=== PATIENT | female | born 1980 | race Caucasian/White ===

== ENCOUNTER 2016-06-08 08:49 | Emergency (ER) | payer MEDICAID ==
[~2016-06-08] VITALS: Ht 154.9 cm; Wt 66.0 kg
[~2016-06-08 08:49] MED LIST: PREN1TAB49
[2016-06-08 08:52] VITALS: Ht 154.9 cm; Wt 66.0 kg
[2016-06-08 09:46] LABS: ADD SCAN DIFF NO
[2016-06-08 09:51] LABS: BASOPHILS % 0.3 % (0.0-2.0); EOSINOPHILS # 0.1 10^3/ul (0.0-0.5); EOSINOPHILS % 1.3 % (0.0-7.0); HEMOGLOBIN 10.9 g/dl (12.0-16.0); LYMPHOCYTES # 1.4 10^3/ul (0.8-2.9); LYMPHOCYTES % 20.9 % (15.0-51.0); MEAN CORPUSCULAR HEMOGLOBIN 30.2 pg (29.0-33.0); MEAN CORPUSCULAR VOLUME 91.4 fl (82.0-101.0); MEAN PLATELET VOLUME 9.2 fl (7.4-10.4); MONOCYTE # 0.5 10^3/ul (0.3-0.9); NEUTROPHIL # 4.7 10^3/ul (1.6-7.5); NEUTROPHILS % 70.1 % (39.0-77.0); PLATELET COUNT 246 10^3/UL (140-415); RED BLOOD COUNT 3.61 10^6/ul (4.20-5.40); RED CELL DISTRIBUTION WIDTH 13.6 % (11.5-14.5); WHITE BLOOD COUNT 6.7 10^3/ul (4.8-10.8)
[2016-06-08 10:04] LABS: ADD UMIC YES; URINE BILIRUBIN (Dip) NEGATIVE (NEGATIVE); URINE BLOOD (Dip) NEGATIVE (NEGATIVE); URINE COLOR LT. YELLOW (YELLOW); URINE GLUCOSE (Dip) NEGATIVE (NEGATIVE); URINE KETONES (Dip) NEGATIVE (NEGATIVE); URINE LEUKOCYTE ESTERASE (Dip) 1+ (NEGATIVE); URINE NITRITE (Dip) NEGATIVE (NEGATIVE); URINE TOTAL PROTEIN (Dip) NEGATIVE (NEGATIVE); URINE UROBILINOGEN (Dip) 0.2 E.U./dL (0.1-1.0)
--- NOTE | 2016-06-08 10:10 | RADRPT ---
PROCEDURE: US OB. CLINICAL INDICATION: Trauma due to a fall. . Pelvic pain. TECHNIQUE: Multiple sonographic images of the uterus were obtained. The images were revi ewed on a PACS workstation. COMPARISON: No prior studies are available for comparison. FINDINGS: There is a single live intrauterine gestation. heart rate is 144 beats per minute. Measurements were made in order to determine age. The results are as follows: BPD = 4.33 cm. HC = 15.52 cm. AC = 13.87 cm. FL = 2.69 cm. Estimated weight is 256 +/- 38 grams. LMP growth percentile is 25 %. Menstrual age by ultrasound dates is 18 weeks 5 days. The estimated date of delivery is 11/04/2016. Cervical length is 3.2 cm. Maximum vertical pocket o f amniotic fluid is 6.4 cm. The ovaries are not visualized. Position is variable and placenta is anterior grade 0. There is no evidence for an abruption. There is at least a partial placenta previa. IMPRESSION: 1. Single live intrauterine gestation of 18 weeks 5 days menstrual age by ultrasound dates. 2. The estimated date of delivery is 11/04/2016. 3. Anterior placenta with at least partial previa. Follow-up advised. RPTAT: QQ .Emanuel Blackburn MD, MD Date Time Electronically viewed and signed by .Emanuel Blackburn MD, on 06/08/2016 10:09 .R/
[2016-06-08 10:47] LABS: BACTERIA,URINE RARE; URINE RBCS 0-2 /HPF (0)
--- NOTE | 2016-06-08 11:08 | ERD ---
ER Documentation Chief Complaint Date/Time DATE: 06/08/16 TIME: 11:03 Chief Complaint C/O LOW BACK PAIN , ABD PAIN S/P FALL ON THURSDAY , 17 WEEKS PREG HPI This a 36-year-old female who presents to the emergency department today complaining of low back pain, buttock pain and some lower pelvic pain and pressure after falling backwards off a chair yesterday. Patient indicates she is approximately 17 weeks . Patient states she has taken Tylenol for the pain. States she is mostly concerned about the pressure in her stomach. Denies any fevers or chills, nausea or vomiting. ROS All systems reviewed and are negative except as per history of present illness. Medications Home Meds Active Scripts Acetaminophen* (Tylophen*) 500 Mg Capsule, 1 CAP PO Q6H Y for PAIN AND OR ELEVATED TEMP, #30 CAP Prov:GINGER KRAMER PA-C 06/08/16 Nitrofurantoin Monohyd Macrocr* (Macrobid*) 100 Mg Capsr, 100 MG PO BID for 7 Days, CAP Prov:GINGER KRAMER PA-C 06/08/16 Reported Medications Vits W-Ca,Fe,Fa(<1MG) () 1 Tab Tablet, DAILY 04/16/11 Discontinued Scripts Acetaminophen* (Tylophen*) 500 Mg Capsule, 1 CAP PO Q6H Y for PAIN AND OR ELEVATED TEMP, #30 CAP Prov:GINGER KRAMER PA-C 06/08/16 Allergies Allergies: Coded Allergies: No Known Allergy (Verified , 06/08/16) PMhx/Soc Medical and Surgical Hx: pt denies Medical Hx, pt denies Surgical Hx History of Surgery: No Anesthesia Reaction: No Hx Neurological Disorder: No Hx Respiratory Disorders: No Hx Cardiac Disorders: No Hx Psychiatric Problems: No Hx Miscellaneous Medical Probl: No Hx Alcohol Use: No Hx Substance Use: No Hx Tobacco Use: No Smoking Status: Never smoker Physical Exam Vitals Vital Signs Date Time Temp Pulse Resp B/P Pulse Ox O2 Delivery O2 Flow Rate FiO2 06/08/16 08:52 98.1 79 18 119/60 100 Physical Exam Const: No acute distress Head: Atraumatic Eyes: Normal Conjunctiva ENT: Normal External Ears, Nose and Mouth. Neck: Full range of motion..~ No meningismus. Resp: Clear to auscultation bilaterally Cardio: Regular rate and rhythm, no murmurs Abd: Soft, mild lower abdominal tenderness non distended. Normal bowel sounds. No right lower quadrant pain. No tenderness at McBurney's. Skin: No petechiae or rashes Back: Midline tenderness and bilateral paraspinal tenderness. No obvious deformity. No step-off. Hematoma and ecchymosis right buttock. Pulses 2+. Distal neurovascularly intact. Ext: No cyanosis, or edema Neur: Awake and alert Psych: Normal Mood and Affect Result Diagram: 06/08/16 0934 Results 24 hrs Laboratory Tests Test 06/08/16 09:34 Basophils # 0.010^3/ul Basophils % 0.3% Beta HCG, Quantitative 92999.0mIU/ml Eosinophils # 0.110^3/ul Eosinophils % 1.3% Hematocrit 33.0% Hemoglobin 10.9g/dl Lymphocytes # 1.410^3/ul Lymphocytes % 20.9% Mean Corpuscular Hemoglobin 30.2pg Mean Corpuscular Hemoglobin Concent 33.0g/dl Mean Corpuscular Volume 91.4fl Mean Platelet Volume 9.2fl Monocytes # 0.510^3/ul Monocytes % 7.0% Neutrophils # 4.710^3/ul Neutrophils % 70.1% Nucleated Red Blood Cells # 0.010^3/ul Nucleated Red Blood Cells % 0.0/100WBC Platelet Count 24654^3/UL Red Blood Count 3.6110^6/ul Red Cell Distribution Width 13.6% Urine Bacteria RARE Urine Bilirubin NEGATIVE Urine Clarity CLEAR Urine Color LT. YELLOW Urine Epithelial Cells RARE Urine Glucose NEGATIVE% Urine Hemoglobin NEGATIVE Urine Ketones NEGATIVE Urine Leukocyte Esterase 1+ Urine Microscopic RBC 0-2/HPF Urine Microscopic WBC 0-2/HPF Urine Nitrite NEGATIVE Urine Specific [place] <=1.005 Urine Total Protein NEGATIVE Urine Urobilinogen 0.2 E.U./dL Urine pH 7.0 White Blood Count 6.710^3/ul DIAGNOSTIC IMAGING REPORT Patient: JEFRY TRAMMELL : 1980 Age: 36 Sex: F MR #: [id number] DOS: 06/08/16 0000 Ordering MD: GINGER KRAMER PA-C Location: [facility] Room/Bed: PROCEDURE: US OB. CLINICAL INDICATION: Trauma due to a fall. . Pelvic pain. TECHNIQUE: Multiple sonographic images of the uterus were obtained. The images were reviewed on a PACS workstation. COMPARISON: No prior studies are available for comparison. FINDINGS: There is a single live intrauterine gestation. heart rate is 144 beats per minute. Measurements were made in order to determine age. The results are as follows: BPD = 4.33 cm. HC = 15.52 cm. AC = 13.87 cm. FL = 2.69 cm. Estimated weight is 256 +/- 38 grams. LMP growth percentile is 25 %. Menstrual age by ultrasound dates is 18 weeks 5 days. The estimated date of delivery is 11/04/2016. Cervical length is 3.2 cm. Maximum vertical pocket of amniotic fluid is 6.4 cm. The ovaries are not visualized. Position is variable and placenta is anterior grade 0. There is no evidence for an abruption. There is at least a partial placenta previa. IMPRESSION: 1. Single live intrauterine gestation of 18 weeks 5 days menstrual age by ultrasound dates. 2. The estimated date of delivery is 11/04/2016. 3. Anterior placenta with at least partial previa. Follow-up advised. RPTAT: QQ .Emanuel Blackburn MD, MD Date Time Electronically viewed and signed by .Emanuel Blackburn MD, on 06/08/2016 10:09 .R/ CC: GINGER KRAMER PA-C Procedures/MDM This is a 36-year-old female who presents to the emergency department today with complaints of pelvic pain, low back pain after falling backwards off a chair yesterday. Patient indicates she was 17 weeks and given the pelvic pain I did obtain a complete OB workup. Laboratory work shows no elevated white blood cell count. Her hemoglobin is mildly decreased at 10.9. Her platelets are within normal limits. UA shows 1+ leukocyte esterase. Negative nitrites. RH Status O+ Beta quant HCG 83475.0 US shows a single live intrauterine gestation of 18 weeks and 5 days. Estimated date of delivery is November 04, 2016. Position is variable placenta is anterior grade 0. There is no evidence for an abruption. There is at least a partial placenta previa. heart rate is 144 bpm. Given the patient's ultrasound of a partial placenta previa I did place a call to the laborist vocational rehabilitation consultant , Dr. Noel , who advised me that this is not concerning given that the patient is only 17 weeks and not yet in her third trimester and that as long as patient does not have any vaginal bleeding she may be discharged home safely. Dr. Noel has asked me to advise the patient to have no sexual intercourse until she has a repeat ultrasound that shows that the previa has moved. Patient understood. I also discussed the patient's hemoglobin with Dr. Noel and she feels that she may be followed up outpatient in the having low hemoglobin and is not uncommon. Patient will be given a prescription for Macrobid for her urinary tract infection. Patient did have some low back pain and some midline tenderness however there appeared to be a low mechanism of injury after falling off a chair. Patient also had ecchymosis and hematoma on her right buttock however I do not feel the patient would benefit from an x-ray of the lumbar spine at this time. I feel that the risks outweigh the benefits given that the patient is . She will be discharged home on Tylenol and macrobid. At this time the patient is stable for discharge and outpatient management. Patient should follow up with their PCP in the next 1-2 days. They may return to the emergency department sooner for any persistent or worsening of symptoms. Patient understood and agreed with the plan. Departure Diagnosis: Primary Impression: Pelvic pain during Additional Impression: Back injury Encounter type: initial encounter Qualified Code: S39.92XA - Back injury, initial encounter Condition: GINGER Farias PA-C Jun 08, 2016 11:08
[2016-06-08] MEDS ORDERED: ACET500C5 PO ×2 (11:29→11:31)
[2016-06-08] MEDS ORDERED: NITR-58 PO (11:30)
[2016-06-08 11:52] VITALS: BP 128/79; PULSE 87
== END 2016-06-08 11:53 | disposition home or self-care (01) ==
LOC: FTE 08:49
DX: O9A.212 Injury, poisoning and certain other consequences of external causes complicating pregnancy, second trimester (principal); R10.2 Pelvic and perineal pain; S39.92XA Unspecified injury of lower back, initial encounter; S39.93XA Unspecified injury of pelvis, initial encounter; W07.XXXA Fall from chair, initial encounter; Y92.9 Unspecified place or not applicable; Z3A.18 18 weeks gestation of pregnancy
CPT/HCPCS: 36415; 76805; 81001; 84702; 85025; 86900; 86901; Z7502; 81003

== ENCOUNTER 2016-10-24 04:49 | Inpatient (IN) | payer MEDICAID ==
[~2016-10-24] VITALS: Ht 154.9 cm; Wt 73.1 kg
[~2016-10-24 04:49] MED LIST changes: +ACET500C5 PO; +NITR-58 PO
[2016-10-24 04:52] VITALS: Ht 154.9 cm; Wt 73.1 kg
--- NOTE | 2016-10-24 06:15 | RADRPT ---
PROCEDURE: Limited OB ultrasound CLINICAL INDICATION: Pain TECHNIQUE: Sonographic evaluation to assess the placenta was performed. Transabdominal imaging of the gravid uterus was performed. COMPARISON: OB ultrasound dated 06/08/2016 FINDINGS: There is a single live intrauterine with cardiac activity, with a heart rate o f 139 bpm. position is cephalic. The placenta is anterior. There is no evidence of placenta l abruption or previa. IMPRESSION: Anterior placenta without evidence of placental abruption or previa. RPTAT: HH .Waleska Nina MD, MD Date Time Electronically viewed and signed by .Waleska Nina MD, on 10/24/2016 06:15 .G/
--- NOTE | 2016-10-24 06:17 | RADRPT ---
PROCEDURE: US Abdomen (right upper quadrant). CLINICAL INDICATION: Abdominal pain. TECHNIQUE: Multiple real-time longitudinal and transverse images of the right upper quadrant of th e abdomen were acquired utilizing a curved array transducer. Images were reviewed on a high-resoluti on PACS workstation. COMPARISON: None FINDINGS: The liver is normal in size and demonstrates increased echogenicity. No focal intrahepatic mass is identified. The gallbladder demonstrates multiple stones. There is no pericholecystic fluid or gal lbladder wall thickening. No intra or extrahepatic biliary dilatation is seen. The common bile duct measures 3.6 mm in maximal dimension. The portal and hepatic veins are patent demonstrating normal directional flow. The visualized portions of the pancreas are unremarkable with obscuration of the t ail of the pancreas. No free fluid is identified. The right kidney measures 11.1 cm in length. There is normal echogenicity within the right kidney. There is no perinephric fluid collection. No hydronephrosis, mass, or calculus is seen. IMPRESSION: 1. Cholelithiasis. 2. Hepatic steatosis. RPTAT: HH .Waleska Nina MD, Date Time Electronically viewed and signed by .Waleska Nina MD, on 10/24/2016 06:17 .G/
[2016-10-24] MEDS ORDERED: EPHEDrine SULFATE 50 MG/5 ML SYG ONE (07:00)
[2016-10-24 07:42] LABS: ADD SCAN DIFF NO
[2016-10-24 07:46] LABS: BASOPHILS % 0.1 % (0.0-2.0); EOSINOPHILS # 0.1 10^3/ul (0.0-0.5); EOSINOPHILS % 1.5 % (0.0-7.0); HEMATOCRIT 35.8 % (37.0-47.0); HEMOGLOBIN 12.1 g/dl (12.0-16.0); LYMPHOCYTES # 1.7 10^3/ul (0.8-2.9); MEAN CORPUSCULAR HEMOGLOBIN 30.9 pg (29.0-33.0); MEAN CORPUSCULAR HGB CONC 33.8 g/dl (32.0-37.0); MEAN CORPUSCULAR VOLUME 91.3 fl (82.0-101.0); MONOCYTE # 0.7 10^3/ul (0.3-0.9); MONOCYTES % 9.2 % (0.0-11.0); NEUTROPHILS % 66.7 % (39.0-77.0); PLATELET COUNT 224 10^3/UL (140-415); RED BLOOD COUNT 3.92 10^6/ul (4.20-5.40); RED CELL DISTRIBUTION WIDTH 13.8 % (11.5-14.5); WHITE BLOOD COUNT 7.5 10^3/ul (4.8-10.8)
[2016-10-24 08:10] LABS: ADD UMIC YES; UR ASCORBIC ACID NEGATIVE (NEGATIVE); UR BACTERIA FEW /HPF (NONE SEEN); UR BILIRUBIN (Dip) NEGATIVE (NEGATIVE); UR BLOOD (Dip) NEGATIVE (NEGATIVE); UR CLARITY SLIGHTLY CLOUDY (CLEAR); UR COLOR YELLOW (YELLOW); UR GLUCOSE (Dip) NEGATIVE (NEGATIVE); UR KETONES (Dip) NEGATIVE (NEGATIVE); UR LEUKOCYTE ESTERASE (Dip) 3+ Leu/ul (NEGATIVE); UR NITRITE (Dip) NEGATIVE (NEGATIVE); UR RBC 3 /HPF (0-5); UR SPECIFIC GRAVITY (Dip) 1.005 (1.003-1.030); UR SQUAMOUS EPITHELIAL CELL FEW /HPF (FEW); UR TOTAL PROTEIN (Dip) NEGATIVE (NEGATIVE); UR UROBILINOGEN (Dip) NEGATIVE (NEGATIVE)
[2016-10-24 08:13] LABS: ALBUMIN/GLOBULIN RATIO 0.88; BILIRUBIN,INDIRECT 0.2 mg/dl (0-1.1); BILIRUBIN,TOTAL 0.2 mg/dl (0.2-1.3); CALCIUM 8.8 mg/dl (8.4-10.2); CREATININE 0.55 mg/dl (0.44-1.00); POTASSIUM 4.1 mmol/L (3.5-5.1); TOTAL PROTEIN 6.4 g/dl (6.1-8.1)
--- NOTE | 2016-10-24 08:36 | PN ---
Triage Information Date/Time 10/24/809 Weeks of Gestation 38w6d : 4 Para: 3 Diabetes: none Hypertention: none Additional information Hx of gall stone with RUQ pain X1 section Objective Heart Rate: 130's Exam VE 0.5 /long/ -3 Results/Medications Result Diagram: 10/24/1672510/24/16725 Results 24 hrs Laboratory Tests Test 10/24/16 07:26 White Blood Count 7.5 Red Blood Count 3.92 L Hemoglobin 12.1 Hematocrit 35.8 L Mean Corpuscular Volume 91.3 Mean Corpuscular Hemoglobin 30.9 Mean Corpuscular Hemoglobin Concent 33.8 Red Cell Distribution Width 13.8 Platelet Count 224 Mean Platelet Volume 10.0 Neutrophils % 66.7 Lymphocytes % 22.0 Monocytes % 9.2 Eosinophils % 1.5 Basophils % 0.1 Neutrophils # 5.0 Lymphocytes # 1.7 Monocytes # 0.7 Eosinophils # 0.1 Basophils # 0.0 Nucleated Red Blood Cells # 0.0 Urine Color YELLOW Urine Clarity SLIGHTLY CLOUDY A Urine pH 6.0 Urine Specific [place] 1.005 Urine Ketones NEGATIVE Urine Nitrite NEGATIVE Urine Bilirubin NEGATIVE Urine Urobilinogen NEGATIVE Urine Leukocyte Esterase 3+ H Urine Microscopic RBC 3 Urine Microscopic WBC 9 H Urine Squamous Epithelial Cells FEW Urine Bacteria FEW A Urine Hemoglobin NEGATIVE Urine Glucose NEGATIVE Urine Total Protein NEGATIVE Sodium Level 140 Potassium Level 4.1 Chloride Level 104 Carbon Dioxide Level 24 Anion Gap 16 Blood Urea Nitrogen 4 L Creatinine 0.55 Glucose Level 77 Calcium Level 8.8 Total Bilirubin 0.2 Direct Bilirubin 0.00 Indirect Bilirubin 0.2 Aspartate Amino Transf (AST/SGOT) 83 H Alanine Aminotransferase (ALT/SGPT) 61 Alkaline Phosphatase 158 H Total Protein 6.4 Albumin 3.0 L Globulin 3.40 H Albumin/Globulin Ratio 0.88 Amylase Level 241 H Lipase 1134 H Imaging Results u/s cholelithiasis hepatic steatosis no sg of inflammation OB u/s ant placenta no previa Assessment/Plan IUP 38w6d with previous section plan informed DR adam and poss repeat section today CHUCK MOROCHO MD Oct 24, 2016 08:35
--- NOTE | 2016-10-24 08:54 | TRIAGE ---
OB Triage Datetime Report Generated by CPN: 10/24/2016 08:54 Datetime: 10/24/2016 08:34 Stage of : OB Triage Datetime: 10/24/2016 08:16 Stage of : OB Triage Labor Evaluation Frequency: 0 Monitor Mode: External Pattern: Normal: <= 5 Contractions in 10 Minutes Resting Tone [place]: Relaxed Heart Rate FHR Baseline Rate: 125 Monitor Mode: External US Variability: Moderate 6-25 bpm Accelerations: 15X15 Decelerations: None Category: Category I Pain Assessment Pain Scale: 6 Pain Presence: Intermittent Pain Type: Ache Pain Location: Other Pain Relief Measures: Comfort Measures Pain Assessment Comments: RUQ Datetime: 10/24/2016 07:29 Stage of : OB Triage Labor Evaluation Frequency: 0 Monitor Mode: External Pattern: Normal: <= 5 Contractions in 10 Minutes Resting Tone [place]: Relaxed Heart Rate FHR Baseline Rate: 125 Monitor Mode: External US Variability: Moderate 6-25 bpm Accelerations: 15X15 Decelerations: None Category: Category I Membrane Status: Intact Datetime: 10/24/2016 07:00 Stage of : OB Triage Labor Evaluation Frequency: IRREG Monitor Mode: External Duration (sec)2399: 40-70 Quality: Mild Pattern: Normal: <= 5 Contractions in 10 Minutes Resting Tone [place]: Relaxed Heart Rate FHR Baseline Rate: 150 Monitor Mode: External US Variability: Moderate 6-25 bpm Accelerations: 15X15 Decelerations: None Category: Category I Datetime: 10/24/2016 06:00 Stage of : OB Triage Labor Evaluation Frequency: IRREG Monitor Mode: External Duration (sec)2399: 40-100 Quality: Mild Pattern: Normal: <= 5 Contractions in 10 Minutes Resting Tone [place]: Relaxed Heart Rate FHR Baseline Rate: 130 Monitor Mode: External US Variability: Moderate 6-25 bpm Accelerations: 15X15 Decelerations: None Category: Category I Pain Assessment Pain Scale: 5 Pain Presence: Constant Pain Type: Cramping Pain Location: RT. UPPER ABD PAIN 5/10 LOWER ABD. 3/10 Pain Goal: 3 Pain Relief Measures: Comfort Measures Datetime: 10/24/2016 05:09 Vaginal Exam Dilatation (cms): 0.5 Station: -3 Exam By: ORIANA Vaginal Bleeding: None Cervix, Consistency: Moderate Cervix, Position: Posterior Datetime: 10/24/2016 04:55 Time of Arrival: 10/24/2016 04:43 EGA: 38.6 Arrived By: Wheelchair Arrived From: Home Chief Complaint: ABD PAIN, CXS AND GALL BLADDER PAIN SINCE 2199 Movement: Present Contractions: Irregular Time Contractions Began: 10/23/2016 22:00 Rupture of Membranes: Denies Vaginal Bleeding: None Vaginal Discharge: Denies Patient Complaints: Contractions Time Provider Notified: 10/24/2016 05:27 Provider Notified: RASHAWN Initial Plan: EFM, ASSESSMENT, CALL MD FOR ORDERS
[2016-10-24] MEDS ORDERED: OXYTOCIN 30 UNITS/LR 500 ML IV PRN ×2 (09:00→18:30)
[2016-10-24] MEDS ORDERED: CARBOPROST 250 MCG INJ IM PRN ×2 (09:00→18:30)
[2016-10-24] MEDS ORDERED: OXYTOCIN 30 UNITS/LR 500 ML IV SCH (09:00)
[2016-10-24] MEDS ORDERED: METHYLERGONOVINE 0.2 MG INJ IM PRN ×2 (09:00→18:30)
[2016-10-24] MEDS ORDERED: MISOPROSTOL 200 MCG TAB PR PRN ×2 (09:00→18:30)
[2016-10-24] MEDS ORDERED: CEFAZOLIN 2 GM/50 ML (PMX) 50 ML IVPB SCH (09:00)
[2016-10-24] MEDS: LACTATED RINGER'S 1,000 ML IV SCH ×2 (09:38→13:21)
[2016-10-24 10:04] LABS: INR 0.99; PARTIAL THROMBOPLASTIN TIME 32.2 Sec (25.0-35.0); PROTIME 13.1 Sec (12.2-14.2)
[2016-10-24] MEDS ORDERED: LACTATED RINGER'S 1,000 ML IV ONE (11:35)
[2016-10-24] MEDS ORDERED: CITRIC ACID/NA CITRATE 30 ML CUP PO ONE (12:00)
[2016-10-24] MEDS ORDERED: FAMOTIDINE 20 MG INJ IV ONE (12:00)
[2016-10-24] MEDS ORDERED: METOCLOPRAMIDE 10 MG INJ IV ONE (12:00)
[2016-10-24] MEDS ORDERED: morphine SULFATE/PF (10 MG/10 ML) INJ ONE (13:59)
[2016-10-24] MEDS ORDERED: FENTAnyl 50 MCG/ML VIAL ONE (13:59)
[2016-10-24] MEDS ORDERED: PHENYLephrine (100 MCG/ML) 5ML SYG ONE (14:10)
[2016-10-24] MEDS ORDERED: ONDANSETRON 4 MG INJ ONE (14:25)
[2016-10-24] MEDS ORDERED: OXYTOCIN 30 UNITS/LR 500 ML IV ONE (14:28)
[2016-10-24] MEDS ORDERED: HYDROmorphONE (0.2 MG/ML) 10ML SYG IV PRN (14:30)
[2016-10-24] MEDS ORDERED: KETOROLAC 30 MG INJ IV PRN (14:30)
[2016-10-24] MEDS ORDERED: ZOLPIDEM 5 MG TAB PO PRN (14:30)
[2016-10-24] MEDS ORDERED: NALOXONE (0.4 MG/ML) INJ IV PRN (14:30)
[2016-10-24] MEDS ORDERED: MEPERIDINE 25 MG INJ IV PRN (14:30)
[2016-10-24] MEDS ORDERED: ONDANSETRON 4 MG INJ IV PRN ×2 (14:30)
[2016-10-24] MEDS ORDERED: HYDROmorphONE 1 MG/ML SYG IV PRN ×2 (14:30)
[2016-10-24] MEDS ORDERED: DIPHENHYDRAMINE 50 MG INJ IV PRN ×2 (14:30)
[2016-10-24] MEDS ORDERED: PROCHLORPERAZINE 10 MG INJ IV PRN ×2 (14:30)
[2016-10-24] MEDS ORDERED: FENTAnyl 50 MCG/ML VIAL IV PRN (14:30)
--- NOTE | 2016-10-24 14:58 | HP ---
Date/Time of Note Date/Time of Note DATE: 10/24/16 TIME: 14:10 OB - History Hx of Present Free Text/Dictation This is a 36 years old female 4 para 3 history of previous C- section EDC of October 24, 2016, admitted to [facility] in labor with marginal placenta previa, she has a history of previous section and 2 vaginal deliveries she has given the option of trial of l labor after, discussing the pros and cons regarding her marginal placenta previa she decided she would like to deliver by repeat this patient has been under the care of the [facility] and her was not complicated with gestational diabetes -induced hypertension or any other serious medical or surgical condition Chief Complaint: Previous in labor Estimated Due Date: Nov 01, 2016 : 4 Para: 3 Care: Limited Care Obstetrical Complications: None Medical Complications: None Past Family/Social History * Past Medical, Surgical, Family and Obstetric Histories reviewed from chart. Rubella: immune RPR/VDRL: Negative GBS Status: Negative HBsAG: Negative OB Admission Exam Physical Exam HEENT: WNL Lungs: Clear, Equal Abdomen: WNL Reflexes: Normal Cervical Dilatation: None Heart Rate: 130's Accelerations: Accelerations Present Decelerations: No Decelerations Varibility: Moderate Contractions on Admission: < 5 Minutes Apart Intensity: Mild Last 72 hours Lab Results CBC & BMP 10/24/16 07:26 Liver Function Test 10/24/16 07:26 Alanine Aminotransferase (ALT/SGPT) 61 Albumin 3.0 L Alkaline Phosphatase 158 H Aspartate Amino Transf (AST/SGOT) 83 H Direct Bilirubin 0.00 Total Protein 6.4 OB Assessment/Plan Reason for admission: section, other (With regard to marginal anterior placenta previa history of previous mutual decision for repeat may) Plan: Section GREER MERIDA MD Oct 24, 2016 14:55
--- NOTE | 2016-10-24 15:06 | OPR ---
Operative Report Planned Procedure Free Text/Dictation 38 weeks 6 days history of previous in labor suspected marginal anterior placenta previa Procedure date Oct 24, 2016 Procedure(s) October 24, 2016 Performed by: GREER MERIDA MD Assisting provider: CHUCK MOROCHO MD Anesthesiologist: SANTO GOLDSMITH MD Pre-procedure diagnosis 38 weeks 6 days previous in labor suspected placenta previa Anesthesia Type: spinal Procedure Description Under satisfactory spinal [] anesthesia, the patient was prepped and draped and placed in a supine position, tilted to the left. Pfannenstiel incision was made , carried through the subcutaneous tissue. Bleeders brought under control with electrocautery. Fascia incised to the length of the incision. Rectus muscles from the fascia, divided midline. Peritoneum exposed, entered through a transverse incision. Exploration of abdomen revealed gravid uterus normal- appearing tubes and ovaries extremely thinned out lower segment of the uterus. Bladder flap was developed. Transverse incision was made in the lower segment of the uterus. Amniotic sac ruptured. Clear [] amniotic fluid noted. Light baby girl was delivered from unengaged vertex covered with anterior placenta [] Nasal oropharyngeal suction was performed. The baby handed to the team for immediate attention she received 20 units of Pitocin. The placenta which was anterior covering the baby's head was delivered manually intact. Uterine cavity was cleaned with wet sponge and drainage established. Uterus closed in 2 layers using Monocryl number [] in continuous fashion. Peritoneal cavity irrigated with warm saline. Sponge, needle and instrument count reported to be correct. Abdominal peritoneum closed with [2-0 chromic cat] continuously. Rectus muscle approximated with [2-0 chromic catgut]. Fascia closed with [#1 PDS ], subcutaneous tissue approximated with 0 chromic catgut and skin closed with zabrina. Estimated blood loss 600 cc []mL. Urine bag contained [200]mL of clear urine patient tolerated procedure well and transferred to recovery room in good condition Post-Procedure Findings: Live Baby girl [], Apgars 9 [] and 9 Complications: None Pt Condition post procedure: stable Physician Certification I, the undersigned physician, hereby certify that I have discussed the procedure described in this consent form with this patient (or the patient's legal construction sales representative), including: * The risk and benefits of the procedure; * Any adverse reactions that may reasonably be expected to occur; * Any alternative efficacious methods of treatment which may be medically viable ; * The potential problems that may occur during recuperation; * Potential for blood transfusion and associated risks/benefits; and * Any research or economic interest I may have regarding this treatment. I further certify that the patient/legally responsible person was encouraged to ask question and that all questions were answered. GREER MERIDA MD Oct 24, 2016 15:06
[2016-10-24 18:25] VITALS: BP 107/66; PULSE 69; RESP 18
[2016-10-24] MEDS ORDERED: OXYCODONE/ACETAMINOPHEN (5/325) TAB PO PRN ×2 (18:30)
[2016-10-24] MEDS ORDERED: ACETAMINOPHEN/CODEINE #3 TAB PO PRN (18:30)
[2016-10-24] MEDS ORDERED: LANOLIN 7 GM TUBE TOP PRN (18:30)
[2016-10-24] MEDS ORDERED: CEFAZOLIN 1 GM/50 ML (PMX) 50 ML IVPB SCH (18:30)
[2016-10-24] MEDS: OXYTOCIN 30 UNITS/LR 500 ML IV SCH ×2 (19:26→23:48)
[2016-10-24 19:30] VITALS: BP 117/81; PULSE 80; RESP 18
[2016-10-24] MEDS: SENNA/DOCUSATE NA (8.6MG/50MG) TAB PO SCH (21:00)
[2016-10-24] MEDS: KETOROLAC 30 MG INJ IV PRN (22:39)
[2016-10-24 23:45] VITALS: BP 103/51; PULSE 71; RESP 18
[2016-10-25 04:00] VITALS: BP 98/56; PULSE 82; RESP 18
[2016-10-25] MEDS: OXYTOCIN 30 UNITS/LR 500 ML IV SCH ×2 (04:11→06:30)
[2016-10-25] MEDS: KETOROLAC 30 MG INJ IV PRN ×2 (04:55→12:30)
[2016-10-25 08:38] LABS: BASOPHILS % 0.2 % (0.0-2.0); EOSINOPHILS # 0.1 10^3/ul (0.0-0.5); EOSINOPHILS % 1.4 % (0.0-7.0); HEMOGLOBIN 10.8 g/dl (12.0-16.0); LYMPHOCYTES # 1.4 10^3/ul (0.8-2.9); LYMPHOCYTES % 15.1 % (15.0-51.0); MEAN CORPUSCULAR HGB CONC 33.8 g/dl (32.0-37.0); MEAN PLATELET VOLUME 10.1 fl (7.4-10.4); MONOCYTE # 0.9 10^3/ul (0.3-0.9); MONOCYTES % 9.4 % (0.0-11.0); NEUTROPHILS % 73.5 % (39.0-77.0); PLATELET COUNT 167 10^3/UL (140-415); RED BLOOD COUNT 3.48 10^6/ul (4.20-5.40); RED CELL DISTRIBUTION WIDTH 13.8 % (11.5-14.5); WHITE BLOOD COUNT 9.5 10^3/ul (4.8-10.8)
[2016-10-25 08:39] VITALS: BP 123/56; PULSE 80; RESP 20
--- NOTE | 2016-10-25 11:08 | PN ---
Date/Time of Note Date/Time of Note DATE: 10/25/16 TIME: 11:07 OB Subjective Subjective Subjective Post day 1 Vital signs are stable she is afebrile abdomen soft moderately distended bowel sounds present lochia moderate extremity normal ambulation encouraged Laboratory Tests Test 10/25/16 08:15 White Blood Count 9.510^3/ul Red Blood Count 3.4810^6/ul Hemoglobin 10.8g/dl Hematocrit 32.0% Mean Corpuscular Volume 92.0fl Mean Corpuscular Hemoglobin 31.0pg Mean Corpuscular Hemoglobin Concent 33.8g/dl Red Cell Distribution Width 13.8% Platelet Count 56303^3/UL Mean Platelet Volume 10.1fl Neutrophils % 73.5% Lymphocytes % 15.1% Monocytes % 9.4% Eosinophils % 1.4% Basophils % 0.2% Nucleated Red Blood Cells % 0.0/100WBC Neutrophils # 7.010^3/ul Lymphocytes # 1.410^3/ul Monocytes # 0.910^3/ul Eosinophils # 0.110^3/ul Basophils # 0.010^3/ul Nucleated Red Blood Cells # 0.010^3/ul Current Medications Medications (Trade) Dose Ordered Sig/Beti Route PRN Reason Start Time Stop Time Status Last Admin Dose Admin Cefazolin Sodium/ Dextrose 50 ml @ 100 mls/hr ONCE IVPB 10/24/16 09:00 10/24/16 18:36 DC Oxytocin/Lactated Ringer's 500 ml @ 125 mls/hr ONCE IV 10/24/16 09:00 10/24/16 18:36 DC 10/24/16 15:15 Oxytocin/Lactated Ringer's 500 ml @ 0 mls/hr ONCE PRN IV For Hemorrhage Management 10/24/16 09:00 10/24/16 18:36 DC Methylergonovine Maleate (Methergine) 0.2 mg ONCE PRN IM VAGINAL BLEEDING 10/24/16 09:00 10/24/16 18:36 DC Carboprost Tromethamine (Hemabate) 250 mcg ONCE PRN IM VAGINAL BLEEDING 10/24/16 09:00 10/24/16 18:36 DC Misoprostol 1000 mcg 1,000 mcg ONCE PRN OR VAGINAL BLEEDING 10/24/16 09:00 10/24/16 18:36 DC Lactated Ringer's 1,000 ml @ 125 mls/hr Q8H IV 10/24/16 09:25 10/24/16 18:36 DC 10/24/16 13:21 Lactated Ringer's (Lr) 1,000 ml @ 1,000 mls/hr Q1H ONCE IV 10/24/16 11:35 10/24/16 12:34 DC 10/24/16 12:00 Citric Acid/ Sodium Citrate (Bicitra) 30 ml PRE-OP ONCE PO 10/24/16 12:00 10/24/16 12:01 DC 10/24/16 12:12 Famotidine (Pepcid Iv) 20 mg pre-procedure ONCE IV 10/24/16 12:00 10/24/16 12:01 DC 10/24/16 12:12 Metoclopramide HCl (Reglan) 10 mg ONCE ONCE IV 10/24/16 12:00 10/24/16 12:01 DC 10/24/16 12:12 Fentanyl (Sublimaze) 100 mcg STK-MED ONCE .ROUTE 10/24/16 13:59 10/24/16 14:00 DC Morphine Sulfate (Duramorph) 10 mg STK-MED ONCE .ROUTE 10/24/16 13:59 10/24/16 14:00 DC Phenylephrine HCl (Hipolito-Synephrine Inj Syg) 500 mcg STK-MED ONCE .ROUTE 10/24/16 14:10 10/24/16 14:11 DC Hydromorphone HCl (Dilaudid (Rec)) 0.4 mg PACU ORDER PRN IV PAIN 10/24/16 14:30 10/24/16 18:36 DC Fentanyl (Sublimaze) 25 mcg PACU ORDER PRN IV PAIN 10/24/16 14:30 10/24/16 18:36 DC Ketorolac Tromethamine (Toradol) 30 mg PACU ORDER PRN IV PAIN 10/24/16 14:30 10/24/16 18:36 DC Ondansetron HCl (Zofran Inj) 4 mg PACU ORDER PRN IV NAUSEA AND/OR VOMITING 10/24/16 14:30 10/24/16 18:36 DC Prochlorperazine (Compazine Inj) 5 mg PACU ORDER PRN IV NAUSEA AND/OR VOMITING 10/24/16 14:30 10/24/16 18:36 DC Meperidine HCl (Demerol) 25 mg PACU ORDER PRN IV POST-OP RIGORS 10/24/16 14:30 10/24/16 18:36 DC Diphenhydramine HCl (Benadryl) 25 mg PACU ORDER PRN IV PRURITUS 10/24/16 14:30 10/24/16 18:36 DC Naloxone HCl (Narcan) 0.1 mg Q2M PRN IV FOR RESP RATE 8 OR LESS 10/24/16 14:30 10/25/16 14:29 Ketorolac Tromethamine (Toradol) 30 mg Q6H PRN IV PAIN 10/24/16 14:30 10/25/16 14:29 10/25/16 04:55 Hydromorphone HCl (Dilaudid) 0.2 mg Q3H PRN IV PAIN LEVEL 1-5 10/24/16 14:30 10/25/16 14:29 Hydromorphone HCl (Dilaudid) 0.4 mg Q3H PRN IV PAIN LEVEL 6-10 10/24/16 14:30 10/25/16 14:29 Diphenhydramine HCl (Benadryl) 25 mg Q6H PRN IV ITCHING 10/24/16 14:30 10/25/16 14:29 Ondansetron HCl (Zofran Inj) 4 mg Q6H PRN IV NAUSEA AND/OR VOMITING 10/24/16 14:30 10/25/16 14:29 Prochlorperazine (Compazine Inj) 10 mg ONCE PRN IV NAUSEA AND/OR VOMITING 10/24/16 14:30 10/25/16 14:29 Zolpidem Tartrate (Ambien) 5 mg HS MAY REPEAT X 1 PRN PO INSOMNIA 10/24/16 14:30 10/25/16 14:29 Miscellaneous Information (* Miscellaneous Pharmacy Order) Duramorph: 0.2 mg Spi... GIVEN XX 10/24/16 14:30 10/24/16 14:30 DC Ondansetron HCl 4 mg 4 mg STK-MED ONCE .ROUTE 10/24/16 14:25 10/24/16 14:26 DC Oxytocin/Lactated Ringer's 500 ml @ ud STK-MED ONCE IV 10/24/16 14:28 10/24/16 14:29 DC Acetaminophen/ Codeine Phosphate (Tylenol No.3) 1 tab Q4H PRN PO PAIN LEVEL 4-6 10/24/16 18:30 Acetaminophen/ Codeine Phosphate (Tylenol No.3) 2 tab Q4H PRN PO PAIN LEVEL 7-10 10/24/16 18:30 Oxycodone/ Acetaminophen (Percocet (5/ 325)) 1 tab Q4H PRN PO PAIN LEVEL 4-6 10/24/16 18:30 Oxycodone/ Acetaminophen (Percocet (5/ 325)) 2 tab Q4H PRN PO PAIN LEVEL 7-10 10/24/16 18:30 Ibuprofen (Motrin) 600 mg Q6 PO 10/25/16 18:00 Simethicone (Mylicon) 160 mg Q8H PRN PO DISTENSION/GAS/BLOATING 10/24/16 18:30 Senna/Docusate Sodium (Senokot-S) 1 tab BID PO 10/24/16 21:00 Lanolin (Njz-R-Vamzke) 1 applic BEDSIDE MEDICATION PRN TOP BEDSIDE FOR KRANTHI TO NIPPLES 10/24/16 18:30 Diphtheria/ Tetanus/Acell Pertussis 0.5 ml 0.5 ml ONCE ONCE IM* 10/27/16 09:00 10/27/16 09:01 Oxytocin/Lactated Ringer's 500 ml @ 0 mls/hr ONCE PRN IV For Hemorrhage Management 10/24/16 18:30 Methylergonovine Maleate (Methergine) 0.2 mg ONCE PRN IM VAGINAL BLEEDING 10/24/16 18:30 Carboprost Tromethamine (Hemabate) 250 mcg ONCE PRN IM VAGINAL BLEEDING 10/24/16 18:30 Misoprostol 1000 mcg 1,000 mcg ONCE PRN OR VAGINAL BLEEDING 10/24/16 18:30 Cefazolin Sodium 50 ml @ 100 mls/hr ONCE IVPB 10/24/16 18:30 10/24/16 18:59 DC 10/24/16 22:40 Oxytocin/Lactated Ringer's 500 ml @ 125 mls/hr Q4H IV 10/24/16 18:30 10/25/16 04:11 GREER MERIDA MD Oct 25, 2016 11:08
[2016-10-25] MEDS: SENNA/DOCUSATE NA (8.6MG/50MG) TAB PO SCH ×2 (12:30→21:50)
[2016-10-25 13:10] VITALS: BP 125/69; PULSE 82; RESP 20
[2016-10-25 15:29] VITALS: BP 94/55; PULSE 72; RESP 20
[2016-10-25] MEDS: IBUPROFEN 600 MG TAB PO SCH (18:17)
[2016-10-25] MEDS: ACETAMINOPHEN/CODEINE #3 TAB PO PRN (18:18)
[2016-10-25 21:00] VITALS: BP 102/56; PULSE 74; RESP 18
[2016-10-26] MEDS: IBUPROFEN 600 MG TAB PO SCH ×5 (00:17→23:41)
[2016-10-26 08:35] VITALS: BP 107/66; PULSE 80; RESP 20
[2016-10-26] MEDS: ACETAMINOPHEN/CODEINE #3 TAB PO PRN ×2 (09:40→17:03)
[2016-10-26] MEDS: SENNA/DOCUSATE NA (8.6MG/50MG) TAB PO SCH ×2 (09:40→21:15)
--- NOTE | 2016-10-26 13:15 | PN ---
Date/Time of Note Date/Time of Note DATE: 10/26/16 TIME: 13:12 OB Subjective Subjective Subjective Post day 2 Afebrile vital signs are stable abdomen soft good bowel lochia moderate no bowel movement extremities normal enema ordered ambulation encouraged OB Assessment/Plan Reason for admission: other Plan: Other (Post day 2 no bowel movement enema recommended) Induction Method: other GREER MERIDA MD Oct 26, 2016 13:15
[2016-10-26] MEDS ORDERED: NA PHOSPHATE/BIPHOS 133 ML ENEMA PR ONE (13:30)
[2016-10-26 17:11] VITALS: BP 109/61; PULSE 80; RESP 19
[2016-10-26 20:00] VITALS: BP 116/65; PULSE 61; RESP 18
[2016-10-27 04:00] VITALS: BP 108/65; PULSE 60; RESP 18
[2016-10-27] MEDS: IBUPROFEN 600 MG TAB PO SCH ×2 (05:34→11:53)
[2016-10-27 08:10] VITALS: BP 98/53; PULSE 59; RESP 20
[2016-10-27] MEDS ORDERED: DIPHTH/TET/ACEL PERTUSS (ADULT) 0.5 ML VIAL IM* ONE (09:00)
--- NOTE | 2016-10-27 09:33 | DS ---
Date/Time of Note Date/Time of Note DATE: 10/27/16 TIME: 09:30 Discharge Summary Admission/Discharge Info Admit Date/Time Oct 24, 2016 at 08:55 Discharge Date/Time October 27, 2016 at 925 Discharge Diagnosis Date 3 post repeat Patient Condition: Good Procedures Repeat section Hx of Present Illness Term history of previous section Hospital Course Satisfactory recovery , incision dry, abdomen soft, good bowel sounds, had bowel movement, discharged home with a follow-up instructions to be seen at the clinic in 4 days to discontinue zabrina Home Meds Active Scripts Acetaminophen* (Tylophen*) 500 Mg Capsule, 1 CAP PO Q6H Y for PAIN AND OR ELEVATED TEMP, #30 CAP Prov:GINGER KRAMER PA-C 06/08/16 Nitrofurantoin Monohyd Macrocr* (Macrobid*) 100 Mg Capsr, 100 MG PO BID for 7 Days, CAP Prov:GINGER KRAMER PA-C 06/08/16 Reported Medications Vits W-Ca,Fe,Fa(<1MG) () 1 Tab Tablet, DAILY 04/16/11 Follow-up Plan Appointment clinic in 4 days to discontinue zabrina Primary Care Provider Care Physician No Primary Time spent on discharge: < 30 minutes GREER MERIDA MD Oct 27, 2016 09:33
[2016-10-27] MEDS ORDERED: NA PHOSPHATE/BIPHOS 133 ML ENEMA PR ONE (10:00)
[2016-10-27] MEDS: SENNA/DOCUSATE NA (8.6MG/50MG) TAB PO SCH (10:31)
== END 2016-10-27 15:40 | disposition home or self-care (01) | DRG 766 ==
LOC: OBT 04:49 → L-D 04:50 → OBT 08:53 → L-D 08:55 → PP1 18:20
PROVIDERS: ADMIT Obstetrics & Gynecology; ATTEND Obstetrics & Gynecology
PROC: 3E033VJ Introduction of Other Hormone into Peripheral Vein, Percutaneous Approach (ICD-10-PCS; 2016-10-24)
PROC: 10D00Z1 Extraction of Products of Conception, Low, Open Approach (ICD-10-PCS; principal; 2016-10-24 14:15)
DX: O34.211 Maternal care for low transverse scar from previous cesarean delivery (principal); Z37.0 Single live birth; Z3A.38 38 weeks gestation of pregnancy
CPT/HCPCS: 36415; 76705; 76815; 80053; 81001; 82150; 83690; 85025; 85610; 85730; 86592; 86850; 86900; 86901; 90715; 99464; G0463; J0690; J1885; J2274; J2370; J2405; J2590; J2765; J3010; J7120

== ENCOUNTER 2017-05-21 21:20 | Emergency (ER) | END 2017-05-21 22:06 | disposition home or self-care (01) ==